=== PATIENT | female | born 1950 | race Hispanic/Latino ===

== ENCOUNTER → 2019-05-23 | Outpatient (CLI) | payer MEDICARE | END | disposition home or self-care (01) | LOC: RAH 14:30 | PROVIDERS: ATTEND Family Medicine | DX: M51.26 Other intervertebral disc displacement, lumbar region (principal); M48.061 Spinal stenosis, lumbar region without neurogenic claudication | CPT/HCPCS: 72148 ==

== ENCOUNTER → 2020-01-20 | Outpatient (CLI) | payer MEDICARE, OTHER | END | disposition home or self-care (01) | LOC: RAH 15:12 | PROVIDERS: ATTEND Physical Medicine & Rehabilitation | DX: M47.816 Spondylosis without myelopathy or radiculopathy, lumbar region (principal) | CPT/HCPCS: 72110 ==

== ENCOUNTER → 2020-04-09 | Outpatient (CLI) | payer OTHER | END | disposition home or self-care (01) | LOC: RAH 11:30 | PROVIDERS: ATTEND Physical Medicine & Rehabilitation | DX: M47.22 Other spondylosis with radiculopathy, cervical region (principal); M25.78 Osteophyte, vertebrae; M48.02 Spinal stenosis, cervical region | CPT/HCPCS: 72040 ==

== ENCOUNTER → 2021-01-06 | Outpatient (CLI) | payer OTHER | END | disposition home or self-care (01) | LOC: RAH 11:31 | PROVIDERS: ATTEND Physical Medicine & Rehabilitation | DX: M25.512 Pain in left shoulder (principal); M25.511 Pain in right shoulder | CPT/HCPCS: 73000 ==

== ENCOUNTER → 2021-01-29 | Outpatient (CLI) | payer OTHER | END | disposition home or self-care (01) | LOC: RAH 12:24 | PROVIDERS: ATTEND Physical Medicine & Rehabilitation | DX: M50.021 Cervical disc disorder at C4-C5 level with myelopathy (principal); G95.20 Unspecified cord compression | CPT/HCPCS: 72141 ==

== ENCOUNTER 2021-03-25 09:00 | Observation (INO) | payer OTHER ==
[~2021-03-25] VITALS: Ht 154.9 cm; Wt 76.8 kg
[2021-03-29 09:31] LABS: BASOPHILS % (AUTO) 0.9 % (0.0-5.0); EOSINOPHILS % (AUTO) 1.2 % (0.0-8.0); HEMATOCRIT 37.6 % (36-48); MEAN CORPUSCULAR HGB CONC 32.7 g/dL (32.0-36.0); MEAN CORPUSCULAR VOLUME 94.7 fL (79-99); MONOCYTES % (AUTO) 8.4 % (3.0-13.0); NEUTROPHILS % (AUTO) 55.1 % (40.0-77.0); PLATELET COUNT (AUTO) 220 K/uL (130-400); RED BLOOD CELL COUNT(AUTO) 3.97 MIL/uL (4.00-5.50); RED CELL DISTRIBUTION WIDTH 13.3 % (11.0-15.5); WHITE BLOOD COUNT (AUTO) 7.8 K/uL (4.8-10.8)
[2021-03-29 09:38] LABS: POTASSIUM 4.5 mmol/L (3.5-5.1)
[2021-03-30 09:08] VITALS: BP 159/73
[2021-03-30] MEDS ORDERED: PRAV40TA3 PO (09:54)
[2021-03-30] MEDS ORDERED: GLUCOSAMINE PO (09:54)
[2021-03-30] MEDS ORDERED: LEFL20TA18 PO (09:54)
[2021-03-30] MEDS ORDERED: LOSA100T58 PO (09:54)
[2021-03-30] MEDS ORDERED: HYDROCHLOROQUINE PO (09:54)
[2021-03-30] MEDS ORDERED: OMEGA 3 PO (09:54)
[2021-03-30] MEDS ORDERED: DILT240C94 PO (09:54)
[2021-03-30] MEDS ORDERED: METO-391 PO (09:54)
[2021-03-30] MEDS ORDERED: LATA7.5D OU (09:54)
[2021-03-31] VITALS (23 sets, daily range): BP systolic 84–140; BP diastolic 37–67
[2021-03-31] MEDS ORDERED: CLINDAMYCIN IVPB 900MG/50ML 50 ML IV ONE (06:09)
[2021-03-31] MEDS ORDERED: LACTATED RINGERS 1000ML 1,000 ML IV ONE (06:09)
[2021-03-31] MEDS ORDERED: BUPIVACAINE/EPI/PF 0.25% 30ML VIAL IJ ONE (06:42)
[2021-03-31] MEDS ORDERED: THROMBIN-JMI 20000 UNIT KIT TP ONE (06:42)
[2021-03-31] MEDS ORDERED: CEFAZOLIN SODIUM 1 GM VIAL ONE (06:42)
[2021-03-31] MEDS ORDERED: SUCCINYLCHOLINE CHLORIDE 20 MG/ML 10 ML VIAL ONE (06:57)
[2021-03-31] MEDS ORDERED: LIDOCAINE PF 100MG/5ML (2%) SYRINGE 5ML ONE (06:57)
[2021-03-31] MEDS ORDERED: GLYCOPYRROLATE 1 MG/5 ML SYRINGE ONE (06:59)
[2021-03-31] MEDS ORDERED: PROPOFOL 10 MG/ML 20ML VIAL IV ONE (06:59)
[2021-03-31] MEDS ORDERED: MIDAZOLAM HCL 1 MG/ML 2ML VIAL ONE (06:59)
[2021-03-31] MEDS ORDERED: DEXAMETHASONE SOD PHOSPHATE 10MG/ML 1ML VIAL ONE (06:59)
[2021-03-31] MEDS ORDERED: ONDANSETRON 4MG INJ ONE ×2 (07:00→09:58)
[2021-03-31] MEDS ORDERED: ROCURONIUM 10MG/1ML SYR 10 MG/ML ML ONE ×2 (07:00→07:58)
[2021-03-31] MEDS ORDERED: NEOSTIGMINE 5MG/5ML SYR IV ONE (07:00)
[2021-03-31] MEDS ORDERED: FENTANYL CITRATE PF 50 MCG/1 ML 2ML VIAL ONE (07:00)
[2021-03-31] MEDS ORDERED: MANNITOL 20% 500ML BAG 500 ML IV ONE (07:35)
[2021-03-31] MEDS ORDERED: ARTIFICIAL TEARS 3.5 GM OINTMENT ONE (07:55)
[2021-03-31] MEDS ORDERED: CLINDAMYCIN IVPB 900MG/50ML 50 ML IV SCH (08:00)
[2021-03-31] MEDS ORDERED: PHENYLEPHRINE HCL 10 MG/ML 1ML VIAL IV ONE (08:46)
[2021-03-31] MEDS ORDERED: DEXAMETHASONE SOD PHOSPHATE 4 MG/ML 1ML VIAL IVP SCH (10:30)
[2021-03-31] MEDS: LACTATED RINGERS 1000ML 1,000 ML IV SCH ×2 (10:30→22:51)
[2021-03-31] MEDS ORDERED: PROMETHAZINE HCL 25 MG/ML 1ML AMPULE IM PRN (10:30)
[2021-03-31] MEDS: CLINDAMYCIN IVPB 900MG/50ML 50 ML IV SCH ×3 (10:30→22:51)
[2021-03-31] MEDS ORDERED: MORPHINE 2 MG SYG IVP PRN (10:30)
[2021-03-31] MEDS: TRAMADOL HCL 50 MG TABLET PO SCH ×4 (10:30→23:03)
[2021-03-31] MEDS ORDERED: HYDROCODONE/ACETAMINOPHEN 5/325 MG TAB PO PRN (10:30)
[2021-03-31] MEDS ORDERED: 0.9%NACL 10ML VIAL IVP PRN (10:30)
[2021-03-31] MEDS ORDERED: DILTIAZEM 120MG SR CAP PO SCH (12:00)
[2021-03-31] MEDS: FISH OIL 1000 MG/CAP PO SCH ×2 (14:00→21:10)
[2021-03-31] MEDS: DEXAMETHASONE SOD PHOSPHATE 4 MG/ML 1ML VIAL IVP SCH ×2 (19:24→23:03)
[2021-03-31] MEDS ORDERED: PRAVASTATIN 40 MG PO SCH (21:00)
[2021-03-31] MEDS ORDERED: LATANOPROST 2.5 ML DROPS OU SCH (21:00)
[2021-03-31] MEDS ORDERED: LOSARTAN 100 MG TABLET PO SCH (21:00)
[2021-03-31] MEDS: HYDROXYCHLOROQUINE SULFATE 200 MG TAB PO SCH (21:00)
[2021-04-01] VITALS: BP 103/43
[2021-04-01] MEDS: DEXAMETHASONE SOD PHOSPHATE 4 MG/ML 1ML VIAL IVP SCH (04:19)
[2021-04-01 08:00] VITALS: BP 133/58
[2021-04-01] MEDS: FISH OIL 1000 MG/CAP PO SCH (08:56)
[2021-04-01] MEDS: HYDROXYCHLOROQUINE SULFATE 200 MG TAB PO SCH (08:58)
[2021-04-01] MEDS: CLINDAMYCIN IVPB 900MG/50ML 50 ML IV SCH (08:59)
[2021-04-01] MEDS: TRAMADOL HCL 50 MG TABLET PO SCH (08:59)
[2021-04-01] MEDS ORDERED: **HM** LEFLUNOMIDE 20MG PO SCH (09:00)
[2021-04-01] MEDS ORDERED: GLUCOSAMINE 1500 MG PO SCH (09:00)
[2021-04-01] MEDS ORDERED: METOPROLOL SUCCINATE 50 MG TAB.SR.24H PO SCH (09:00)
[2021-04-01 11:30] VITALS: BP 122/47
== END 2021-04-01 11:30 | disposition home or self-care (01) ==
LOC: EDSTATUS 09:00 → DAHIP 03-31 05:54 → 3AH 03-31 11:35
PROVIDERS: ADMIT Neurological Surgery; ATTEND Neurological Surgery
DX: M54.10 Radiculopathy, site unspecified (principal); Z20.822 Contact with and (suspected) exposure to COVID-19; M50.221 Other cervical disc displacement at C4-C5 level; M48.061 Spinal stenosis, lumbar region without neurogenic claudication; I10 Essential (primary) hypertension; E78.5 Hyperlipidemia, unspecified; M06.9 Rheumatoid arthritis, unspecified; M25.78 Osteophyte, vertebrae; Z79.899 Other long term (current) drug therapy; Z98.890 Other specified postprocedural states; Z90.710 Acquired absence of both cervix and uterus
CPT/HCPCS: 20930; 22551; 22845; 36415; 71045; 72020; 80051; 85025; 87635; 96361; 96365; 96366 ×2; 96375; 96376; A4215; A4221; A4222; A4223; A4344; A4600; A4649 ×2; A4663; A6010; A6260; C1713 ×2; G0378 ×25; J0330; J0690; J1100 ×4; J2001; J2250; J2370; J2405 ×2; J2704; J2710; J3010; J3490 ×6; J7120 ×2

== ENCOUNTER → 2021-05-03 | Outpatient (CLI) | payer OTHER ==
[~2021-05-03] MED LIST: DILT240C94 PO; GLUCOSAMINE PO; HYDROCHLOROQUINE PO; LATA7.5D OU; LEFL20TA18 PO; LOSA100T58 PO; METO-391 PO; OMEGA 3 PO; PRAV40TA3 PO
== END | disposition home or self-care (01) ==
LOC: OIH 09:35
PROVIDERS: ATTEND Neurological Surgery
DX: M50.30 Other cervical disc degeneration, unspecified cervical region (principal); M47.812 Spondylosis without myelopathy or radiculopathy, cervical region
CPT/HCPCS: 72040

== ENCOUNTER 2022-12-05 05:39 | Observation (INO) | payer OTHER ==
[2022-12-02 10:16] LABS: ALBUMIN 4.1 g/dL (3.5-5.0); CRP QUANTITATIVE < 2.00 mg/L (0.00-9.0)
[2022-12-02 10:26] LABS: APPEARANCE,URINE CLEAR (CLEAR); BILIRUBIN,URINE NEGATIVE (NEGATIVE); COLOR,URINE COLORLESS (YELLOW); GLUCOSE, URINE (UA) NEGATIVE (NEGATIVE); KETONES,URINE NEGATIVE (NEGATIVE); LEUKOCYTE ESTERASE ,URINE NEGATIVE Leu/uL (NEGATIVE); NITRATE,URINE NEGATIVE (NEGATIVE); OCCULT BLOOD,URINE NEGATIVE (NEGATIVE); PROTEIN,URINE NEGATIVE (NEGATIVE); UROBILINOGEN,URINE 0.2 mg/dL (0.2-1.0)
[2022-12-02 10:56] VITALS: BP 174/72
[2022-12-05] VITALS (26 sets, daily range): BP systolic 110–169; BP diastolic 54–90
[~2022-12-05] VITALS: Ht 154.9 cm; Wt 74.2 kg
[~2022-12-05 05:39] MED LIST changes: +DILT180T12 PO; -DILT240C94 PO; -GLUCOSAMINE PO; +HYDR12.54 PO; -LOSA100T58 PO; +LOSA100T59 PO; -METO-391 PO; +METO-409 PO; -OMEGA 3 PO; +PSYL0.5245 PO
[2022-12-05] MEDS ORDERED: LACTATED RINGERS 1000ML 1,000 ML IV ONE (06:21)
[2022-12-05] MEDS ORDERED: CEFAZOLIN SODIUM 1 GM VIAL ONE (06:21)
[2022-12-05] MEDS ORDERED: ONDANSETRON 4MG INJ ONE (06:43)
[2022-12-05] MEDS ORDERED: DEXAMETHASONE SOD PHOSPHATE 10MG/ML 1ML VIAL ONE (06:43)
[2022-12-05] MEDS ORDERED: LIDOCAINE PF 100MG/5ML (2%) SYRINGE 5ML ONE (06:43)
[2022-12-05] MEDS ORDERED: SUCCINYLCHOLINE 200MG/10ML SYR ONE (06:43)
[2022-12-05] MEDS ORDERED: GLYCOPYRROLATE 1 MG/5 ML SYRINGE ONE (06:43)
[2022-12-05] MEDS ORDERED: PROPOFOL 10 MG/ML 20ML VIAL IV ONE (06:43)
[2022-12-05] MEDS ORDERED: NEOSTIGMINE 5MG/5ML SYR IV ONE (06:43)
[2022-12-05] MEDS ORDERED: FENTANYL CITRATE PF 50 MCG/1 ML 2ML VIAL ONE ×2 (06:44→08:01)
[2022-12-05] MEDS ORDERED: ROCURONIUM 10MG/1ML SYR 10 MG/ML ML ONE (06:44)
[2022-12-05] MEDS ORDERED: MIDAZOLAM HCL 1 MG/ML 2ML VIAL ONE (06:44)
[2022-12-05] MEDS ORDERED: TRANEXAMIC ACID 1000MG/10ML ONE ×2 (06:54→08:47)
[2022-12-05] MEDS ORDERED: BUPIVACAINE/PF 0.5% 30ML VIAL ONE (06:56)
[2022-12-05] MEDS ORDERED: KETOROLAC 30MG VIAL (30MG/ML) ONE (06:56)
[2022-12-05] MEDS ORDERED: ROPIVACAINE 0.5% 5MG/ML 30ML IJ ONE (06:58)
[2022-12-05] MEDS ORDERED: CEFAZOLIN SODIUM 2 GM VIAL IVPB ONE (07:23)
[2022-12-05] MEDS ORDERED: EPHEDRINE SULFATE 50 MG/ML AMPULE ONE (07:30)
[2022-12-05] MEDS ORDERED: PHENYLEPHRINE HCL 10 MG/ML 1ML VIAL IV ONE (07:31)
[2022-12-05] MEDS ORDERED: TRANEXAMIC ACID 1000MG/10ML IV ONE (08:50)
[2022-12-05] MEDS ORDERED: OXYMETAZOLINE HCL SPRAY 15 ML BOTTLE ONE (08:59)
[2022-12-05] MEDS ORDERED: ONDANSETRON 4MG INJ IVP PRN (09:30)
[2022-12-05] MEDS ORDERED: TRAMADOL HCL 50 MG TABLET PO PRN (09:30)
[2022-12-05] MEDS ORDERED: FERROUS FUMARATE 324 MG TABLET PO PRN (09:30)
[2022-12-05] MEDS ORDERED: CALCIUM CARB 500MG PO PRN (09:30)
[2022-12-05] MEDS ORDERED: POTASSIUM CHLORIDE 10% ELIXIR 20 MEQ/15 ML UDCUP PO PRN (09:30)
[2022-12-05] MEDS ORDERED: KETOROLAC 15MG/ML VIAL (15MG/ML) IV PRN (09:30)
[2022-12-05] MEDS ORDERED: KCL 20 MEQ ERTAB PO PRN (09:30)
[2022-12-05] MEDS ORDERED: DiphenhydrAMINE HCL 50 MG/ML VIAL IVP PRN (09:30)
[2022-12-05] MEDS ORDERED: POTASSIUM CHLORIDE 20MEQ/100ML 100 ML IV PRN (09:30)
[2022-12-05] MEDS: KETOROLAC 15MG/ML VIAL (15MG/ML) IV SCH ×2 (10:03→18:15)
[2022-12-05] MEDS: 0.9%NACL 1000ML 1,000 ML IV SCH ×2 (11:09→19:30)
[2022-12-05] MEDS: HYDROCODONE/ACETAMINOPHEN 5/325 MG TAB PO PRN ×2 (11:50→22:24)
[2022-12-05] MEDS: HYDROXYCHLOROQUINE SULFATE 200 MG TAB PO SCH ×2 (12:18→19:40)
[2022-12-05] MEDS: GABAPENTIN 100 MG CAPSULE PO SCH ×2 (13:51→19:46)
[2022-12-05] MEDS: CEFAZOLIN SODIUM 1 GM VIAL IVPB SCH ×2 (13:51→21:58)
[2022-12-05] MEDS: SIMVASTATIN 20 MG TABLET PO SCH (19:40)
[2022-12-05] MEDS: LOSARTAN 100 MG TABLET PO SCH (19:40)
[2022-12-05] MEDS: DOCUSATE SODIUM 100 MG CAP PO SCH (19:40)
[2022-12-05] MEDS: LATANOPROST 2.5 ML DROPS OU SCH (19:40)
[2022-12-05] MEDS: DILTIAZEM 180MG SR CAP PO SCH (19:41)
[2022-12-06] MEDS: KETOROLAC 15MG/ML VIAL (15MG/ML) IV SCH (01:26)
[2022-12-06 03:37] VITALS: BP 151/76
[2022-12-06] MEDS: 0.9%NACL 1000ML 1,000 ML IV SCH (04:35)
[2022-12-06] MEDS: CYCLOBENZAPRINE HCL 10 MG TABLET PO PRN ×2 (04:46→21:05)
[2022-12-06] MEDS: HYDROCODONE/ACETAMINOPHEN 5/325 MG TAB PO PRN ×3 (04:47→21:38)
[2022-12-06 05:01] LABS: MEAN CORPUSCULAR HEMOGLOBIN 31.4 pg (27.0-33.0); MEAN CORPUSCULAR HGB CONC 34.3 g/dL (32.0-36.0); MEAN CORPUSCULAR VOLUME 91.5 fL (79-99); RED BLOOD CELL COUNT(AUTO) 3.06 MIL/uL (4.00-5.50); RED CELL DISTRIBUTION WIDTH 12.8 % (11.0-15.5); WHITE BLOOD COUNT (AUTO) 11.8 K/uL (4.8-10.8)
[2022-12-06 05:15] LABS: CREATININE 0.9 mg/dL (0.5-1.5); POTASSIUM 3.9 mmol/L (3.5-5.1)
[2022-12-06 07:44] VITALS: BP 143/75
[2022-12-06] MEDS: METOPROLOL SUCCINATE 50 MG TAB.SR.24H PO SCH (08:33)
[2022-12-06] MEDS: ASPIRIN 325MG TAB PO SCH (08:33)
[2022-12-06] MEDS: GABAPENTIN 100 MG CAPSULE PO SCH ×3 (08:33→21:06)
[2022-12-06] MEDS: HYDROXYCHLOROQUINE SULFATE 200 MG TAB PO SCH ×2 (08:33→21:05)
[2022-12-06] MEDS: POLYETHYLENE GLYCOL 3350 17 GM POWD.PACK PO SCH (08:34)
[2022-12-06] MEDS: DOCUSATE SODIUM 100 MG CAP PO SCH ×2 (08:34→21:05)
[2022-12-06] MEDS: PSYLLIUM SEED 1 EACH PACKET PO SCH (08:34)
[2022-12-06] MEDS: LEFLUNOMIDE 20 MG PO SCH (09:00)
[2022-12-06] MEDS: NON-FORMULARY MEDICATION 1 EACH (Hydrochlorothiazide 12.5 MG) PO SCH (09:00)
[2022-12-06 11:30] VITALS: BP 134/67
[2022-12-06 16:07] VITALS: BP 147/66
[2022-12-06 19:20] VITALS: BP 127/65
[2022-12-06] MEDS: DILTIAZEM 180MG SR CAP PO SCH (21:05)
[2022-12-06] MEDS: SIMVASTATIN 20 MG TABLET PO SCH (21:06)
[2022-12-06] MEDS: LOSARTAN 100 MG TABLET PO SCH (21:06)
[2022-12-06] MEDS: LATANOPROST 2.5 ML DROPS OU SCH (21:07)
[2022-12-06 23:16] VITALS: BP 148/72
[2022-12-07 03:44] VITALS: BP 146/65
[2022-12-07] MEDS: LEFLUNOMIDE 20 MG PO SCH (07:56)
[2022-12-07] MEDS: NON-FORMULARY MEDICATION 1 EACH (Hydrochlorothiazide 12.5 MG) PO SCH (07:57)
[2022-12-07 08:03] VITALS: BP 152/58
[2022-12-07] MEDS: ASPIRIN 325MG TAB PO SCH (09:07)
[2022-12-07] MEDS: GABAPENTIN 100 MG CAPSULE PO SCH ×2 (09:07→14:29)
[2022-12-07] MEDS: PSYLLIUM SEED 1 EACH PACKET PO SCH (09:07)
[2022-12-07] MEDS: POLYETHYLENE GLYCOL 3350 17 GM POWD.PACK PO SCH (09:07)
[2022-12-07] MEDS: HYDROXYCHLOROQUINE SULFATE 200 MG TAB PO SCH (09:07)
[2022-12-07] MEDS: METOPROLOL SUCCINATE 50 MG TAB.SR.24H PO SCH (09:07)
[2022-12-07] MEDS: DOCUSATE SODIUM 100 MG CAP PO SCH (09:07)
[2022-12-07] MEDS: HYDROCODONE/ACETAMINOPHEN 5/325 MG TAB PO PRN (10:56)
[2022-12-07 11:46] VITALS: BP 146/65
[2022-12-07] MEDS ORDERED: ASPI-1026 PO (15:38)
[2022-12-07] MEDS ORDERED: GABA100C PO (15:38)
[2022-12-07] MEDS ORDERED: HYDR-4060 PO (15:38)
[2022-12-07] MEDS ORDERED: CYCL-309 PO (15:38)
[2022-12-07] MEDS ORDERED: DOCU-116 PO (15:38)
[2022-12-07 16:00] VITALS: BP 135/61
[2022-12-08] MEDS ORDERED: BISACODYL 10 MG SUPP.RECT RC PRN (09:30)
== END 2022-12-07 19:10 ==
LOC: DAH 05:39 → DAHIP 05:40 → DAH 05:40 → 4CH 10:25
PROVIDERS: ADMIT Student in an Organized Health Care Education/Training Program; ATTEND Student in an Organized Health Care Education/Training Program
DX: M17.12 Unilateral primary osteoarthritis, left knee (principal); Z20.822 Contact with and (suspected) exposure to COVID-19; D62 Acute posthemorrhagic anemia; M25.562 Pain in left knee; R33.9 Retention of urine, unspecified; I10 Essential (primary) hypertension; E78.5 Hyperlipidemia, unspecified; M19.90 Unspecified osteoarthritis, unspecified site; K21.9 Gastro-esophageal reflux disease without esophagitis; Z79.899 Other long term (current) drug therapy; Z98.890 Other specified postprocedural states; Z90.710 Acquired absence of both cervix and uterus
CPT/HCPCS: 82040; 87077; 87088; 87186; 84134; 86140; 87426; 81003; 36415 ×2; 87641; 97039 ×6; 27447; 96365; 96366; 96375; 64447; 73560; 97161; 96376 ×2; 80048; 85027; 97116 ×4; 97530 ×4; 70450; G0378 ×54; A4663; J7120 ×2; A4215 ×2; J3010 ×2; J0690 ×4; J3490 ×6; J0330; J1100; J2710; J2001; J2250; J2704; J2405 ×2; J1885 ×5; J2795; J2370; C1713 ×2; G0168; C1776 ×2; A4649 ×4; A6255; A5120; A4223; A4222; A4221

== ENCOUNTER → 2023-12-21 | Outpatient (CLI) | payer OTHER ==
[~2023-12-21] MED LIST changes: +ASPI-1026 PO; +CYCL-309 PO; +DOCU-116 PO; +GABA100C PO; +HYDR-4060 PO; -LEFL20TA18 PO; +LEFL20TA22 PO
== END | disposition home or self-care (01) ==
LOC: RAH 13:29
PROVIDERS: ATTEND Physical Medicine & Rehabilitation
DX: M17.11 Unilateral primary osteoarthritis, right knee (principal); M25.561 Pain in right knee
CPT/HCPCS: 73562

== ENCOUNTER → 2024-01-03 | Outpatient (CLI) | payer OTHER | END | disposition home or self-care (01) | LOC: RAH 13:37 | PROVIDERS: ATTEND Internal Medicine Cardiovascular Disease | DX: Z13.6 Encounter for screening for cardiovascular disorders (principal) | CPT/HCPCS: 75571 ==

== ENCOUNTER → 2024-01-12 | Outpatient (CLI) | payer OTHER | END | disposition home or self-care (01) | LOC: SHCH 10:35 | PROVIDERS: ATTEND Internal Medicine Cardiovascular Disease | DX: I08.3 Combined rheumatic disorders of mitral, aortic and tricuspid valves (principal) | CPT/HCPCS: 93306 ==

== ENCOUNTER 2024-05-15 15:16 | Emergency (ER) | payer OTHER ==
[~2024-05-15] VITALS: Ht 154.9 cm; Wt 74.8 kg
[2024-05-15 16:01] LABS: BASOPHILS # (AUTO) 0.03 K/uL (0.00-0.20); BASOPHILS % (AUTO) 0.3 % (0.0-5.0); EOSINOPHILS # (AUTO) 0.02 K/uL (0.00-0.70); EOSINOPHILS % (AUTO) 0.2 % (0.0-8.0); HEMATOCRIT 29.2 % (36-48); IMMATURE GRANULOCYTE ABSOLUTE 0.04 K/uL (0-1); LYMPHOCYTES # (AUTO) 1.8 K/uL (1.0-4.8); LYMPHOCYTES % (AUTO) 19.3 % (21.0-51.0); MEAN CORPUSCULAR HEMOGLOBIN 31.3 pg (27.0-33.0); MEAN CORPUSCULAR HGB CONC 33.9 g/dL (32.0-36.0); MEAN CORPUSCULAR VOLUME 92.4 fL (79-99); MONOCYTES # (AUTO) 1.5 K/uL (0.1-1.0); MONOCYTES % (AUTO) 16.9 % (3.0-13.0); NEUTROPHILS # (AUTO) 5.7 K/uL (1.8-7.7); NEUTROPHILS % (AUTO) 62.9 % (40.0-77.0); PLATELET COUNT (AUTO) 286 K/uL (130-400); RED BLOOD CELL COUNT(AUTO) 3.16 MIL/uL (4.00-5.50); RED CELL DISTRIBUTION WIDTH 13.2 % (11.0-15.5); WHITE BLOOD COUNT (AUTO) 9.1 K/uL (4.8-10.8)
[2024-05-15] MEDS: ondanSETRON 4MG INJ IVP STA (16:01)
[2024-05-15] MEDS: 0.9%NACL 1000ML 1,000 ML IV STA (16:02)
[2024-05-15 16:10] LABS: CREATININE 1.2 mg/dL (0.5-1.0)
[2024-05-15 16:15] LABS: ALBUMIN 3.3 g/dL (3.5-5.0); BILIRUBIN,TOTAL 0.4 mg/dL (0.2-1.0)
[2024-05-15 16:52] LABS: BAND NEUTROPHILS % (MANUAL) 35 % (0-2); MAN.DIFF COMMENT-IMPRESSION MANUAL DIFFERENTIAL; MONOCYTES % (MANUAL) 9 % (2-9); PLATELET MORPHOLOGY COMMENT ADEQUATE; SEGMENTED NEUTROPHILS % 56 % (40-70); TOTAL CELLS COUNTED 100; WBC MORPHOLOGY CONSISTENT W/DIFF
[2024-05-15 18:11] LABS: APPEARANCE,URINE CLEAR (CLEAR); BILIRUBIN,URINE NEGATIVE (NEGATIVE); COLOR,URINE COLORLESS (YELLOW); GLUCOSE, URINE (UA) NEGATIVE (NEGATIVE); KETONES,URINE NEGATIVE (NEGATIVE); LEUKOCYTE ESTERASE ,URINE 25 Leu/uL (NEGATIVE); NITRATE,URINE NEGATIVE (NEGATIVE); OCCULT BLOOD,URINE NEGATIVE (NEGATIVE); PROTEIN,URINE NEGATIVE (NEGATIVE); UROBILINOGEN,URINE 0.2 mg/dL (0.2-1.0)
[2024-05-15 18:17] LABS: ADD UA MICROSCOPIC YES
[2024-05-15 18:19] LABS: MUCUS,URINE RARE LPF (None Seen); RBC,URINE 0-1 /HPF (0-1); SQUAMOUS EPITHELIAL CELL,UR RARE /HPF (0-2)
[2024-05-15] MEDS ORDERED: FAMO-136 PO (18:24)
[2024-05-15 20:05] VITALS: BP 132/70; PULSE 70; RESP 18; TEMP 98.1; O2SAT 98
== END 2024-05-15 20:05 | disposition home or self-care (01) ==
LOC: EDH 15:16
DX: K52.9 Noninfective gastroenteritis and colitis, unspecified (principal); E78.00 Pure hypercholesterolemia, unspecified; I10 Essential (primary) hypertension; Z79.69 Long term (current) use of other immunomodulators and immunosuppressants; Z79.82 Long term (current) use of aspirin; Z79.899 Other long term (current) drug therapy; Z88.1 Allergy status to other antibiotic agents; Z88.8 Allergy status to other drugs, medicaments and biological substances
CPT/HCPCS: 99284; 96374; 96361; 84484; 80053; 83690; 85025; 81001; 36415; 93005; J7030; J2405